=== PATIENT | female | born 1975 | race African-American/Black ===

== ENCOUNTER 2023-01-07 07:21 | Day surgery (SDC) | payer BC ==
[2023-01-02 10:20] VITALS: BMI 25.3
[2023-01-07] MEDS ORDERED: PROPOFOL 120 ML ONE (07:34)
[2023-01-07] MEDS ORDERED: LIDOCAINE HCL/PF 2% SDV 5ML VIAL ONE (08:07)
[2023-01-07 08:46] VITALS: RESP 16; TEMP 97.8
[2023-01-07 09:01] VITALS: BP 95/54; PULSE 61
== END 2023-01-07 09:11 | disposition home or self-care (01) ==
LOC: FASU-ENDO 07:21
PROVIDERS: ATTEND Internal Medicine Gastroenterology
PROC: 0DJD8ZZ Inspection of Lower Intestinal Tract, Via Natural or Artificial Opening Endoscopic (ICD-10-PCS; principal; 2023-01-07 08:14)
DX: Z12.11 Encounter for screening for malignant neoplasm of colon (principal)
CPT/HCPCS: 81025